=== PATIENT | male | born 1955 | race Caucasian/White ===

== ENCOUNTER 2023-03-28 21:39 | Emergency (ER) | payer MEDICARE, MEDICAID ==
[2023-03-28] MEDS ORDERED: Bacitracin 1 PK ONE (22:31)
[2023-03-28] MEDS ORDERED: Lidocaine 1% w/Epinephrine 1:100K 20 ML VIAL ONE (22:31)
== END 2023-03-29 00:34 | disposition home or self-care (01) ==
LOC: ERS 21:39
DX: S41.012A Laceration without foreign body of left shoulder, initial encounter (principal); S01.81XA Laceration without foreign body of other part of head, initial encounter; S09.90XA Unspecified injury of head, initial encounter; I10 Essential (primary) hypertension; W22.8XXA Striking against or struck by other objects, initial encounter
CPT/HCPCS: 12011; 36416; 70450; 72125; 72170; 93005